=== PATIENT | female | born 1960 | race Caucasian/White ===

== ENCOUNTER 2023-11-05 14:41 | Emergency (ER) | payer OTHER ==
[2023-11-05] MEDS: Lidocaine 1% 5 ML VIAL INJECT ONE (15:05)
[2023-11-05] MEDS: Bacitracin Oint 1 GM U/D Packet TOP ONE (15:10)
[2023-11-05] MEDS: Diphtheria,Pertussis(Acell),Tetanus Vaccine 0.5 ML Syringe IM ONE (15:12)
== END 2023-11-05 15:15 | disposition home or self-care (01) ==
LOC: LB.ED 14:41
DX: S60.453A Superficial foreign body of left middle finger, initial encounter (principal); Z23 Encounter for immunization; W45.8XXA Other foreign body or object entering through skin, initial encounter
CPT/HCPCS: 90471; 90715; 99283-25